=== PATIENT | female | born 1945 ===

== ENCOUNTER 2016-08-02 17:18 | Emergency (ER) | payer MEDICARE ==
[2016-08-02 17:25] VITALS: BP 149/74; PULSE 91; RESP 18; TEMP 97.8
--- NOTE | 2016-08-02 18:05 | ED ---
General Adult HPI - General Chief complaint: ENT Stated complaint: GUMS BLEEDING, CANT STOP, ON BLOOD THINNER Time Seen by Provider: 08/02/16 17:45 Source: patient, RN notes reviewed Mode of arrival: wheelchair Limitations: no limitations - History of Present Illness Initial comments: This is a 71-year-old female who presents with bleeding gums x1hr. Patient states she may have scratched her gums while eating. Patient states she was concerned because there was a lot of blood. Patient has been holding compression to the area for one hour and the bleeding has slowed down. Patient states she's been on an anticoagulant, Savaysa, x4 months. Patient denies that she hit her head and denies any headache, dizziness, nausea/vomiting or abdominal pain. Patient states she has never had bleeding gums while taking this blood thinner. Patient does admit to a history of periodontal disease. Patient denies any recent fever, chills, shortness breath, chest pain, diarrhea , back pain, numbness, tingling, hematuria, or visual changes, or any other complaints. - Related Data Home Medications Medication Instructions Recorded Confirmed Ibuprofen [Motrin] 200 - 400 mg PO Q6HR PRN 05/01/15 08/02/16 Lisinopril [Lisinopril] 5 mg PO DAILY 05/01/15 08/02/16 Cholecalciferol [Vitamin D3] 1,000 unit PO DAILY 08/02/16 08/02/16 Cyanocobalamin [Vitamin B-12] 500 mcg PO DAILY 08/02/16 08/02/16 Edoxaban Tosylate [Savaysa] 60 mg PO DAILY 08/02/16 08/02/16 Allergies Allergy/AdvReac Type Severity Reaction Status Date / Time Influenza Virus Vaccines Allergy Unknown Verified 08/02/16 17:40 Penicillins Allergy Rash/Hives Verified 08/02/16 17:40 Review of Systems ROS Statement: Those systems with pertinent positive or pertinent negative responses have been documented in the HPI. ROS Other: All systems not noted in ROS Statement are negative. Past Medical History Past Medical History: Hypertension History of Any Multi-Drug Resistant Organisms: None Reported Past Surgical History: Hysterectomy Additional Past Surgical History / Comment(s): laparoscopy Past Psychological History: No Psychological Hx Reported Smoking Status: Never smoker Past Alcohol Use History: Daily Past Drug Use History: None Reported General Exam - General Exam Comments Initial Comments: General: The patient is awake and alert, in no distress, and does not appear acutely ill. Eye: Pupils are equal, round and reactive to light, extra-ocular movements are intact. No nystagmus. There is normal conjunctiva bilaterally. No signs of icterus. Ears: TMs pink and pearly with intact cone of light bilaterally. Normal external ear canals Nose: Nasal turbinates pink and moist Mouth and throat: There is an approximately 1-2 mm abrasion to the left lower gumline around tooth #19. There is no active bleeding during exam. No erythema , swelling or purulent drainage. There are moist mucous membranes. Neck: The neck is supple, there is no tenderness or JVD. Cardiovascular: There is a regular rate and rhythm. No murmur, rub or gallop is appreciated. Respiratory: Lungs are clear to auscultation, respirations are non-labored, breath sounds are equal. No wheezes, stridor, rales, or rhonchi. Musculoskeletal: Normal ROM, no tenderness. Strength 5/5. Sensation intact. Radial pulses equal bilaterally 2+. Neurological: A&O x 3. CN II-XII intact, There are no obvious motor or sensory deficits. Coordination appears grossly intact. Speech is normal. Skin: Skin is warm and dry and no rashes or lesions are noted. Psychiatric: Cooperative, appropriate mood & affect, normal judgment. Limitations: no limitations Course Vital Signs 08/02/16 17:22 Temperature 97.8 F Pulse Rate 91 Respiratory 18 Rate Blood Pressure 149/74 O2 Sat by Pulse 98 Oximetry Medical Decision Making - Medical Decision Making This is a 71-year-old female who presents with bleeding gums. Patient states she is on anticoagulants. On physical exam patient is well-appearing and afebrile. There is an approximately 1-2 mm abrasion to the left lower gumline around tooth #19. There is no active bleeding during exam. Patient was observed while not holding compression to the area for approximately 30 minutes. Bleeding did not recur. Discussed that patient will be discharged. Discussed if bleeding does reoccur to apply compression to the area. Patient states she is following up with her primary care physician tomorrow. I discussed return parameters the patient should return to the [facility] for any worsening symptoms or for any further concerns. Patient and were receptive to this plan and patient will be discharged home. Disposition Clinical Impression: Abrasion, Gums, bleeding Disposition: HOME SELF-CARE Condition: Good Instructions: Blood Thinners (ED) Additional Instructions: If bleeding recurs please apply pressure to the area. Please use medication as discussed. Please follow-up with family doctor in the next 2 days of symptoms have not improved. Please return to emergency room if the symptoms increase or worsen or for any other concerns. Referrals: Linsey Heck MD [Primary Care Provider] - 1-2 days Time of Disposition: 18:36
== END 2016-08-02 18:52 | disposition home or self-care (01) ==
LOC: EC 17:18
DX: S00.512A Abrasion of oral cavity, initial encounter (principal); I10 Essential (primary) hypertension; Z79.899 Other long term (current) drug therapy; Z88.7 Allergy status to serum and vaccine; Z88.0 Allergy status to penicillin; X58.XXXA Exposure to other specified factors, initial encounter
CPT/HCPCS: 99282

== ENCOUNTER 2017-01-17 18:37 | Emergency (ER) | payer MEDICARE ==
--- NOTE | 2017-01-17 19:57 | ED ---
ENT HPI - General Chief complaint: Dental/Oral Stated complaint: Dental Bleeding Time Seen by Provider: 01/17/17 19:49 Source: patient, RN notes reviewed Mode of arrival: ambulatory Limitations: no limitations - History of Present Illness Initial comments: This is a 71-year-old female presents emergency Department chief complaint of bleeding from her bowels. Patient states that she had her teeth cleaned today and was some bleeding from lower abdominal started at 5 PM. Patient states that she keeps having her films and states that she notices small spots of bleeding. Patient states that she suffers from 3 days ago. Patient states that she was on blood thinners back in September but has not that her Synthroid. Patient states that she is concerned about the bleeding. She states that they had to scrape along her gumline which she feels irritated at this time. - Related Data Home Medications Medication Instructions Recorded Confirmed Lisinopril [Lisinopril] 5 mg PO DAILY 05/01/15 01/17/17 Cholecalciferol [Vitamin D3] 2,000 unit PO DAILY 08/02/16 01/17/17 Cyanocobalamin [Vitamin B-12] 500 mcg PO DAILY 08/02/16 01/17/17 Allergies Allergy/AdvReac Type Severity Reaction Status Date / Time Influenza Virus Vaccines Allergy Unknown Verified 01/17/17 20:00 Penicillins Allergy Rash/Hives Verified 01/17/17 20:00 Review of Systems ROS Statement: Those systems with pertinent positive or pertinent negative responses have been documented in the HPI. ROS Other: All systems not noted in ROS Statement are negative. Past Medical History Past Medical History: Hypertension History of Any Multi-Drug Resistant Organisms: None Reported Past Surgical History: Hysterectomy Additional Past Surgical History / Comment(s): laparoscopy Past Psychological History: No Psychological Hx Reported Smoking Status: Never smoker Past Alcohol Use History: Daily Past Drug Use History: None Reported General Exam Limitations: no limitations General appearance: alert, in no apparent distress Head exam: Present: atraumatic, normocephalic, normal inspection Eye exam: Present: normal appearance, PERRL, EOMI. Absent: scleral icterus, conjunctival injection, periorbital swelling ENT exam: Present: mucous membranes moist. Absent: normal exam, normal oropharynx (Mild erythema of the lower gumline, there is no active bleeding there is a small spot that had some blood noted with no drainage.) Course Vital Signs 01/17/17 19:17 Temperature 97 F L Pulse Rate 92 Respiratory 18 Rate Blood Pressure 132/70 O2 Sat by Pulse 97 Oximetry Medical Decision Making - Medical Decision Making 71-year-old female presented emergency from for bleeding from her gums. Patient has no active hemorrhaging. Patient was given a short at this time and observe. There is been no rebleeding no facial be discharged. She is advised to not to bother her problems and to refrain from brushing along her gumline for 24 hours. Disposition Clinical Impression: Bleeding gums Disposition: HOME SELF-CARE Condition: Stable Instructions: Gingivitis (ED) Additional Instructions: Please return to the Emergency Department if symptoms worsen or any other concerns. Referrals: Linsey Heck MD [Primary Care Provider] - 1-2 days Time of Disposition: 20:20
[2017-01-17 20:34] VITALS: BP 134/74; PULSE 91; RESP 17; TEMP 97.4
== END 2017-01-17 20:50 | disposition home or self-care (01) ==
LOC: EC 18:37
DX: K06.8 Other specified disorders of gingiva and edentulous alveolar ridge (principal); I10 Essential (primary) hypertension; Z79.899 Other long term (current) drug therapy; Z88.0 Allergy status to penicillin
CPT/HCPCS: 99282

== ENCOUNTER → 2017-05-14 | Outpatient (CLI) | payer MEDICARE ==
--- NOTE | 2017-05-15 09:19 | MM ---
Reason for exam: screening (asymptomatic). Last mammogram was performed 1 year and 3 months ago. History: Patient is postmenopausal and has history of other cancer at age 65. Benign MG stereo VAD BX LT of the left breast, July 21, 2015. Benign excisional biopsy of the left breast, 1992. Took hormonal contraceptives for 16 years beginning at age 21. Took estrogen for 18 years beginning at age 37. Took other hormone for 3 years. Physical Findings: A clinical breast exam by your physician is recommended on an annual basis and results should be correlated with mammographic findings. MG 3D Screening Mammo W/Cad Bilateral CC and MLO view(s) were taken. Prior study comparison: January 31, 2016, left breast MG 3d diag mammo w/cad LT. July 07, 2015, left breast MG work up mamm w CAD LT. There are scattered fibroglandular densities. There is no discrete abnormality. No significant changes when compared with prior studies. ASSESSMENT: Negative, BI-RAD 1 RECOMMENDATION: Routine screening mammogram of both breasts in 1 year.
== END | disposition home or self-care (01) ==
LOC: RADMAMWWP 10:38
PROVIDERS: ATTEND Family Medicine
DX: Z12.31 Encounter for screening mammogram for malignant neoplasm of breast (principal)
CPT/HCPCS: 77063; 77067

== ENCOUNTER → 2018-08-22 | Outpatient (CLI) | payer MEDICARE ==
--- NOTE | 2018-08-22 19:25 | BD ---
EXAMINATION TYPE: Axial Bone Density DATE OF EXAM: 08/22/2018 COMPARISON: 06.29.2015 CLINICAL HISTORY: 73 YR OLD FEMALE....ICD-10 CODE: M81.0 AGE RELATED OSTEOPOROSIS Height: 58.8 Weight: 151 FRAX RISK QUESTIONS: Family History (Parent hip fracture): YES Secondary Osteoporosis: YES 3. Menopause before 45: YES RISK FACTORS HISTORY OF: Family History of Osteoporosis: MOTHER, WITH BROKEN HIP Active: YES Postmenopausal woman: TOTAL HYSTERECTOMY AT AGE 35.5 Take estrogen and/or progesterone medications: YES FOR ABOUT 10 YRS ONLY, NONE NOW MEDICATIONS: Prednisone or other steroids: PREDNISONE IN EYE DROPS ONLY Additional Medications: BP MEDS, VIT D, ASPIRIN Additional History: HYPERTENSION, HX OF BLOOD CLOT EXAM MEASUREMENTS: Bone mineral densitometry was performed using the [employer] System. Bone mineral density as measured about the Lumbar spine is: ----- L1-L4(G/cm2): 1.176 T Score Values are as follows: ----- L1: -1.0 ----- L2: -0.8 ----- L3: 0.2 ----- L4: 1.0 ----- L1-L4: 0.0 Bone mineral density has: Increased 0.3% since study of: 06.29.2015 Bone mineral density about the R hip (g/cm2): 0.754 Bone mineral density about the L hip (g/cm2): 0.787 T Score values are as follows: -----R Neck: -2.3 -----L Neck: -2.1 -----R Total: -2.0 -----L Total: -1.8 Bone mineral density has: Increased 1.6% since study of: 06.29.2015 FRAX%s: THERE IS A 23.1% CHANCE FOR A MAJOR OSTEOPOROTIC FX AND A 10.2% FOR HIP.....PROBABILITY OF FX IN 10 YRS TIME IMPRESSION: Osteopenia (T Score between -2.5 and -1). There is slightly increased risk of fracture and the patient may be considered for treatment. Re-Screen 2-5 years. NOTE: T-SCORE=SD OF THE YOUNG ADULT MEAN.
--- NOTE | 2018-08-26 08:03 | MM ---
Reason for exam: screening (asymptomatic). Last mammogram was performed 1 year and 3 months ago. History: Patient is postmenopausal and has history of other cancer at age 65. Benign MG stereo VAD BX LT of the left breast, July 21, 2015. Benign excisional biopsy of the left breast, 1992. Took hormonal contraceptives for 16 years beginning at age 21. Took estrogen for 18 years beginning at age 37. Took other hormone for 3 years. Physical Findings: A clinical breast exam by your physician is recommended on an annual basis and results should be correlated with mammographic findings. MG 3D Screening Mammo W/Cad Bilateral CC and MLO view(s) were taken. Prior study comparison: May 14, 2017, bilateral MG 3d screening mammo w/cad. January 31, 2016, left breast MG 3d diag mammo w/cad LT. There are scattered fibroglandular densities. Previous mammotome biopsy in the left breast. No significant changes when compared with prior studies. ASSESSMENT: Benign, BI-RAD 2 RECOMMENDATION: Routine screening mammogram of both breasts in 1 year.
== END | disposition home or self-care (01) ==
LOC: RADMAMWWP 11:41
PROVIDERS: ATTEND Internal Medicine Geriatric Medicine
DX: Z12.31 Encounter for screening mammogram for malignant neoplasm of breast (principal); M85.80 Other specified disorders of bone density and structure, unspecified site
CPT/HCPCS: 77063; 77067; 77080

== ENCOUNTER → 2020-03-11 | Outpatient (CLI) | payer MEDICARE ==
--- NOTE | 2020-03-12 12:26 | MM ---
Reason for exam: screening (asymptomatic). Last mammogram was performed 1 year and 7 months ago. History: Patient is postmenopausal and has history of other cancer at age 65. Family history of breast cancer in paternal grandmother. Benign MG stereo VAD BX LT of the left breast, July 21, 2015. Benign excisional biopsy of the left breast, 1992. Took hormonal contraceptives for 16 years beginning at age 21. Took estrogen for 18 years beginning at age 37. Took other hormone for 3 years. Physical Findings: A clinical breast exam by your physician is recommended on an annual basis and results should be correlated with mammographic findings. MG 3D Screening Mammo W/Cad Bilateral CC and MLO view(s) were taken. Prior study comparison: August 22, 2018, bilateral MG 3d screening mammo w/cad. May 14, 2017, bilateral MG 3d screening mammo w/cad. The breast tissue is almost entirely fat. No significant changes when compared with prior studies. ASSESSMENT: Benign, BI-RAD 2 RECOMMENDATION: Routine screening mammogram of both breasts in 1 year.
== END | disposition home or self-care (01) ==
LOC: RADMAMWWP 11:01
PROVIDERS: ATTEND Internal Medicine Geriatric Medicine
DX: Z12.31 Encounter for screening mammogram for malignant neoplasm of breast (principal)
CPT/HCPCS: 77063; 77067

== ENCOUNTER → 2021-04-05 | Outpatient (CLI) | payer MEDICARE ==
--- NOTE | 2021-04-07 12:05 | MM ---
Reason for exam: screening (asymptomatic). Last mammogram was performed 1 year and 1 month ago. History: Patient is postmenopausal and has history of other cancer at age 65. Family history of breast cancer in paternal grandmother. Benign MG stereo VAD BX LT of the left breast, July 21, 2015. Benign excisional biopsy of the left breast, 1992. Took hormonal contraceptives for 16 years beginning at age 21. Took estrogen for 18 years beginning at age 37. Took other hormone for 3 years. Physical Findings: A clinical breast exam by your physician is recommended on an annual basis and results should be correlated with mammographic findings. MG 3D Screening Mammo W/Cad Bilateral CC and MLO view(s) were taken. Prior study comparison: March 11, 2020, bilateral MG 3d screening mammo w/cad. August 22, 2018, bilateral MG 3d screening mammo w/cad. There are scattered fibroglandular densities. No significant changes when compared with prior studies. ASSESSMENT: Benign, BI-RAD 2 RECOMMENDATION: Routine screening mammogram of both breasts in 1 year.
== END | disposition home or self-care (01) ==
LOC: RADMAMWWP 13:04
PROVIDERS: ATTEND Internal Medicine Geriatric Medicine
DX: Z12.31 Encounter for screening mammogram for malignant neoplasm of breast (principal)
CPT/HCPCS: 77063; 77067

== ENCOUNTER → 2022-04-06 | Outpatient (CLI) | payer MEDICARE ==
--- NOTE | 2022-04-06 17:45 | BD ---
EXAMINATION TYPE: Axial Bone Density DATE OF EXAM: 04/06/2022 CLINICAL HISTORY: 77 year old Female. ICD-10 CODE: M81.0 AGE-RELATED OSTEOPOROSIS Height: 59 Weight: 152.4 FRAX RISK QUESTIONS: Alcohol (3 or more units per day): no Family History (Parent hip fracture): no Glucocorticoids (More than 3mos): no (Ex: prednisone, prednisolone, methylprednisolone, dexamethasone, and hydrocortisone). History of Fracture in Adulthood: no Secondary Osteoporosis: 1. Type 1 Diabetes: no 2. Hyperthyroidism: no 3. Menopause before 45: yes 4. Malnutrition: no 5. Chronic liver disease: no Rheumatoid Arthritis: yes Current Tobacco Use: no RISK FACTORS HISTORY OF: Surgery to Spine/Hip(right/left)/Wrist (right/left): no Family History of Osteoporosis: no Active: yes Diet low in dairy products/other sources of calcium: no Postmenopausal woman: yes Lost more than 2 inches in height since high school: no MEDICATIONS: Additional History: EXAM MEASUREMENTS: Bone mineral densitometry was performed using the [employer] System. Bone mineral density as measured about the Lumbar spine is: ----- L1-L4(G/cm2): 1.158 T Score Values are as follows: ----- L1: -1.2 ----- L2: -0.7 ----- L3: -0.1 ----- L4: 0.7 ----- L1-L4: -0.2 Bone mineral density has: decreased-1.5 % since study of: 08.22.2018 Bone mineral density about the R hip (g/cm2): 0.684 Bone mineral density about the L hip (g/cm2): 0.658 T Score values are as follows: -----R Neck: -2.5 -----L Neck: -2.7 -----R Total: -2.1 -----L Total: -1.8 Bone mineral density has: decreased -0.9 % since study of: 08.22.2018 FRAX%s: The graph provided illustrates a 18.8% chance for a major osteoporotic fx and a 6.6% chance f or the hips probability for fx in 10 years time. IMPRESSION: Osteoporosis (T Score less than -2.5). There is increased fracture risk and therapy is usually indicated based on age. Re-Screen 1-2 years. NOTE: T-SCORE=SD OF THE YOUNG ADULT MEAN.
--- NOTE | 2022-04-07 08:38 | MM ---
Reason for Exam: Screening (asymptomatic). Last screening mammogram was performed 12 month(s) ago. Patient History: Menarche at age 12. First Full-Term at age 20. Left ovary removed at age 37. Right ovary removed at age 37. Hysterectomy at age 37. Postmenopausal. Other cancer, age 65. Estrogen for 18 years from age 37 until age 55. Hormonal Contraceptives for 16 years from age 21 until age 37. 1992, Benign Excisional Biopsy on the left side. 07/21/2015, Benign Core Biopsy on the left side. Paternal grandmother had breast cancer. Risk Values: Danielle 5 year model risk: 2.1%. NCI Lifetime model risk: 4.3%. Prior Study Comparison: 08/22/2018 Bilateral Screening Mammogram, [facility]. 03/11/2020 Bilateral Screening Mammogram, [facility]. 04/05/2021 Bilateral Screening Mammogram, [facility]. Tissue Density: There are scattered fibroglandular densities. Findings: Analyzed By CAD. Mammotome biopsy clip in the left breast is redemonstrated. There are scattered benign-appearing small round and linear calcifications bilaterally redemonstrated. Benign-appearing left axillary lymph nodes are again seen. There is no suspicious new group of microcalcifications or new suspicious mass in either breast. Overall Assessment: Benign, BI-RAD 2 Management: Screening Mammogram of both breasts in 1 year. A clinical breast exam by your physician is recommended on an annual basis and results should be correlated with mammographic findings. Electronically signed and approved by: Jose Davila M.D.
== END | disposition home or self-care (01) ==
LOC: RADMAMWWP 10:00
PROVIDERS: ATTEND Internal Medicine Geriatric Medicine
DX: Z12.31 Encounter for screening mammogram for malignant neoplasm of breast (principal); M81.0 Age-related osteoporosis without current pathological fracture; Z78.0 Asymptomatic menopausal state; Z80.3 Family history of malignant neoplasm of breast; Z90.721 Acquired absence of ovaries, unilateral
CPT/HCPCS: 77063; 77067; 77080

== ENCOUNTER → 2023-04-11 | Outpatient (CLI) | payer MEDICARE ==
--- NOTE | 2023-04-12 08:19 | MM ---
Reason for Exam: Screening (asymptomatic). Last screening mammogram was performed 12 month(s) ago. Patient History: Menarche at age 12. First Full-Term at age 20. Left ovary removed at age 37. Right ovary removed at age 37. Hysterectomy at age 37. Postmenopausal. Other cancer, age 65. Estrogen for 18 years from age 37 until age 55. Hormonal Contraceptives for 16 years from age 21 until age 37. 1992, Benign Excisional Biopsy on the left side. 07/21/2015, Benign Core Biopsy on the left side. Paternal grandmother had breast cancer. Risk Values: Danielle 5 year model risk: 2.1%. NCI Lifetime model risk: 4.0%. Prior Study Comparison: 03/11/2020 Bilateral Screening Mammogram, [facility]. 04/05/2021 Bilateral Screening Mammogram, [facility]. 04/06/2022 Bilateral MG 3D screening mammo w/cad, [facility]. Tissue Density: The breast tissue is heterogeneously dense. This may lower the sensitivity of mammography. Findings: Analyzed By CAD. There is no suspicious group of microcalcifications or new suspicious mass in either breast. Overall Assessment: Benign, BI-RAD 2 Management: Screening Mammogram of both breasts in 1 year. . Patient should continue monthly self-breast exams. A clinical breast exam by your physician is recommended on an annual basis. This exam should not preclude additional follow-up of suspicious palpable abnormalities. Note on Danielle scores and lifetime risk: 1. A Danielle score greater than 3% is considered moderate risk. If this is the case, consider specialist referral to assess eligibility for a risk reducing agent. 2. If overall lifetime risk for the development of breast cancer is 20% or higher, the patient may qualify for future screening with alternating mammogram and breast MRI. Electronically signed and approved by: Neo Christian M.D. Radiologis
== END | disposition home or self-care (01) ==
LOC: RADMAMWWP 09:42
PROVIDERS: ATTEND Internal Medicine Geriatric Medicine
DX: Z12.31 Encounter for screening mammogram for malignant neoplasm of breast (principal); Z80.3 Family history of malignant neoplasm of breast; Z78.0 Asymptomatic menopausal state
CPT/HCPCS: 77063; 77067

== ENCOUNTER → 2024-04-22 | Outpatient (CLI) | payer MEDICARE ==
--- NOTE | 2024-04-24 07:59 | MM ---
Reason for Exam: Screening (asymptomatic). Last screening mammogram was performed 12 month(s) ago. Patient History: Menarche at age 12. First Full-Term at age 20. Left ovary removed at age 37. Right ovary removed at age 37. Hysterectomy at age 37. Postmenopausal. Other cancer, age 65. Estrogen for 18 years from age 37 until age 55. Hormonal Contraceptives for 16 years from age 21 until age 37. 1992, Benign Excisional Biopsy on the left side. 07/21/2015, Benign Core Biopsy on the left side. Paternal grandmother had breast cancer, age 55. Risk Values: Danielle 5 year model risk: 2.0%. NCI Lifetime model risk: 3.7%. Prior Study Comparison: 04/05/2021 Bilateral Screening Mammogram, [facility]. 04/06/2022 Bilateral MG 3D screening mammo w/cad, [facility]. 04/11/2023 Bilateral MG 3D screening mammo w/cad, [facility]. Tissue Density: There are scattered areas of fibroglandular density. Findings: Analyzed By CAD. There is no suspicious group of microcalcifications or new suspicious mass in either breast. Chronic nodularity Overall Assessment: Benign, BI-RAD 2 Management: Screening Mammogram of both breasts in 1 year. . Patient should continue monthly self-breast exams. A clinical breast exam by your physician is recommended on an annual basis. This exam should not preclude additional follow-up of suspicious palpable abnormalities. Note on Danielle scores and lifetime risk: 1. A Danielle score greater than 3% is considered moderate risk. If this is the case, consider specialist referral to assess eligibility for a risk reducing agent. 2. If overall lifetime risk for the development of breast cancer is 20% or higher, the patient may qualify for future screening with alternating mammogram and breast MRI. [facility], , 04/24/2024 7:56 AM. Electronically signed and approved by: Hira Calle M.D. Radiologis
== END | disposition home or self-care (01) ==
LOC: RADMAMWWP 09:32
PROVIDERS: ATTEND Internal Medicine Geriatric Medicine
DX: Z12.31 Encounter for screening mammogram for malignant neoplasm of breast (principal); Z90.722 Acquired absence of ovaries, bilateral; Z80.3 Family history of malignant neoplasm of breast; Z78.0 Asymptomatic menopausal state; R92.323 Mammographic fibroglandular density, bilateral breasts
CPT/HCPCS: 77063; 77067

== ENCOUNTER 2024-05-19 19:15 | Emergency (ER) | payer MEDICARE ==
[2024-05-19 19:32] VITALS: BP 134/84; PULSE 105; RESP 18; TEMP 98.4
--- NOTE | 2024-05-19 20:15 | ED ---
General Adult HPI - General Chief complaint: Extremity Problem,Nontraumatic Stated complaint: L Hand Swelling/bruising Time Seen by Provider: 05/19/24 19:46 Source: patient, RN notes reviewed Mode of arrival: ambulatory - History of Present Illness Initial comments: 79-year-old female presents to the emergency department for evaluation of bruising and swelling to her hand. Patient reports that she bruises easily. She is not on blood thinners. She denies any trauma to the area. Denies numbness, tingling. Patient has a quarter sized hematoma to the dorsum of the distal left hand over the third MCP. - Related Data Home Medications Medication Instructions Recorded Confirmed lisinopriL [Lisinopril] 5 mg PO DAILY 05/01/15 01/17/17 Cholecalciferol [Vitamin D3] 2,000 unit PO DAILY 08/02/16 01/17/17 Cyanocobalamin [Vitamin B-12] 500 mcg PO DAILY 08/02/16 01/17/17 Allergies Allergy/AdvReac Type Severity Reaction Status Date / Time Influenza Virus Vaccines Allergy Unknown Verified 05/19/24 19:32 Penicillins Allergy Rash/Hives Verified 05/19/24 19:32 Review of Systems ROS Statement: Those systems with pertinent positive or pertinent negative responses have been documented in the HPI. ROS Other: All systems not noted in ROS Statement are negative. Past Medical History Past Medical History: Hypertension History of Any Multi-Drug Resistant Organisms: None Reported Past Surgical History: Hysterectomy Additional Past Surgical History / Comment(s): laparoscopy Past Psychological History: No Psychological Hx Reported Past Alcohol Use History: Daily Past Drug Use History: None Reported General Exam Limitations: no limitations General appearance: alert, in no apparent distress Head exam: Present: atraumatic, normocephalic, normal inspection Eye exam: Present: normal appearance, PERRL, EOMI. Absent: scleral icterus, conjunctival injection, periorbital swelling Extremities exam: Present: full ROM, normal capillary refill, other (Radial pulses 2+, no tenderness to palpation, full range of motion to fingers, wrist, normal cap refill, quarter sized hematoma to the dorsum of the distal left hand over the third MCP). Absent: tenderness, pedal edema, joint swelling, calf tenderness Neurological exam: Present: alert, oriented X3 Psychiatric exam: Present: normal affect, normal mood Skin exam: Present: warm, dry, intact, other (ecchymosis). Absent: normal color Course Vital Signs 05/19/24 19:29 Temperature 98.4 F Pulse Rate 105 H Respiratory 18 Rate Blood Pressure 134/84 O2 Sat by Pulse 97 Oximetry Medical Decision Making - Medical Decision Making Was pt. sent in by a medical professional or institution (CASEY Christina, ESCROW CLERK, urgent care, hospital, or [place] [facility]...) When possible be specific @ -No Did you speak to anyone other than the patient for history (EMS, parent, family, police, friend...)? What history was obtained from this source @ -No Did you review nursing and triage notes (agree or disagree)? Why? @ -I reviewed and agree with nursing and triage notes Were old charts reviewed (outside hosp., previous admission, EMS record, old EKG, old radiological studies, urgent care reports/EKG's, [place] [facility] records)? Report findings @ -No old charts were reviewed Differential Diagnosis (chest pain, altered mental status, abdominal pain women, abdominal pain men, vaginal bleeding, weakness, fever, dyspnea, syncope, headache, dizziness, GI bleed, back pain, seizure, CVA, palpatations, mental health, musculoskeletal)? @ -Ecchymosis, hematoma, cellulitis, fracture, this list is not all inclusive EKG interpreted by me (3pts min.). @ -None X-rays interpreted by me (1pt min.). @ -None done CT interpreted by me (1pt min.). @ -None done U/S interpreted by me (1pt. min.). @ -None done What testing was considered but not performed or refused? (CT, X-rays, U/S, labs)? Why? @ -None What meds were considered but not given or refused? Why? @ -None Did you discuss the management of the patient with other professionals (professionals i.e. CASEY Christina, ESCROW CLERK, lab, RT, psych nurse, social media analyst, manufacturing electrician, teacher, diplomatic officer, case coordinator)? Give summary @ -No Was smoking cessation discussed for >3mins.? @ -No Was critical care preformed (if so, how long)? @ -No Were there social determinants of health that impacted care today? How? (Homelessness, low income, unemployed, alcoholism, drug addiction, transportation, low edu. Level, literacy, decrease access to med. care, [place] [facility], rehab)? @ -No Was there de-escalation of care discussed even if they declined (Discuss DNR or withdrawal of care, Hospice)? DNR status @ -No What co-morbidities impacted this encounter? (DM, HTN, Smoking, COPD, CAD, Cancer, CVA, ARF, Chemo, Hep., AIDS, mental health diagnosis, sleep apnea, morbid obesity)? @ -None Was patient admitted / discharged? Hospital course, mention meds given and route, prescriptions, significant lab abnormalities, going to OR and other pertinent info. @ -Discharged. Patient presented to the emergency department for evaluation of bruising to left hand. Patient has quarter sized hematoma on the dorsum of the left hand. Patient neurovascularly intact. No tenderness palpation. No trauma. The patient will be discharged home. Presents stating agreeable plan. Patient stable at time of discharge. Case discussed with Dr. Spaulding Undiagnosed new problem with uncertain prognosis? @ -No Drug Therapy requiring intensive monitoring for toxicity (Heparin, Nitro, Insulin, Cardizem)? @ -No Were any procedures done? @ -No Diagnosis/symptom? @ -Hematoma Acute, or Chronic, or Acute on Chronic? @ -acute Uncomplicated (without systemic symptoms) or Complicated (systemic symptoms)? @ -uncomplicated Side effects of treatment? @ -No Exacerbation, Progression, or Severe Exacerbation? @ -No Poses a threat to life or bodily function? How? (Chest pain, [place], [place], pneumonia, PE, COPD, DKA, ARF, appy, cholecystitis, CVA, Diverticulitis, Homicidal, S uicidal, threat to staff... and all critical care pts) @ -No Disposition Clinical Impression: Hematoma Disposition: HOME SELF-CARE Condition: Stable Instructions (If sedation given, give patient instructions): Hematoma (ED) Additional Instructions: Please compress and ice the area. Follow up with your primary care provider. Return to the emergency department for new or worsening symptoms. Is patient prescribed a controlled substance at d/c from ED?: No Referrals: Hira Mackey MD [Primary Care Provider] - 1-2 days
== END 2024-05-19 20:30 | disposition home or self-care (01) ==
LOC: EC 19:15
DX: S60.222A Contusion of left hand, initial encounter (principal); Z88.0 Allergy status to penicillin; Z88.7 Allergy status to serum and vaccine; X58.XXXA Exposure to other specified factors, initial encounter
CPT/HCPCS: 99283